=== PATIENT | male | born 1955 | race Caucasian/White ===

== ENCOUNTER 2022-04-29 14:30 | Outpatient (RCR) | payer OTHER, SELFPAY ==
[2022-04-29 14:31] VITALS: BMI 31.3
[2022-04-29 15:20] VITALS: BMI 31.3
== END 2022-07-05 10:49 | disposition home or self-care (01) ==
LOC: ANHDMC 14:30
PROVIDERS: PCP Family Medicine Adolescent Medicine; Visit Provider Nurse Practitioner Family
DX: E11.9 Type 2 diabetes mellitus without complications (principal); Z71.89 Other specified counseling; Z71.3 Dietary counseling and surveillance
CPT/HCPCS: 97802; G0108

== ENCOUNTER 2022-07-29 09:20 | Outpatient (RCR) | payer OTHER, SELFPAY | END 2022-10-14 15:24 | disposition home or self-care (01) | LOC: ANHDMC 09:20 | PROVIDERS: PCP Family Medicine Adolescent Medicine; Visit Provider Nurse Practitioner Family | DX: E11.9 Type 2 diabetes mellitus without complications (principal); Z71.89 Other specified counseling | CPT/HCPCS: G0108 ==

== ENCOUNTER 2022-12-31 13:57 | Emergency (ER) | payer MEDICARE, SELFPAY ==
--- NOTE | ~2022-12-31 | XR_ITS ---
EXAMINATION: XR knee RT min 4V DATE: 12/31/2022 14:35 INDICATION: Right knee pain after working in the yard TECHNIQUE: Anteroposterior, 2 oblique and crosstable lateral views of the right knee were obtained COMPARISON: None. FINDINGS: Alignment is normal. No fracture. Joint spaces appear normal on nonweightbearing imaging. There are tiny marginal osteophytes in all 3 compartments consistent with at least mild osteoarthritis. Tiny en thesopathic calcification at the distal quadriceps tendon. No joint effusion/layering lipohemarthrosi s. Soft tissues are unremarkable. IMPRESSION: 1. Mild tricompartmental osteoarthritis at the right knee. No right knee joint effusion or acute osse ous abnormality. Reviewed, dictated and finalized at location A. IMPRESSION: 1. Mild tricompartmental osteoarthritis at the right knee. No right knee joint effusion or acute osseous abnormality.
[2022-12-31 14:10] VITALS: BP 135/60; PULSE 62; RESP 16; TEMP 36.8; O2SAT 100
--- NOTE | 2022-12-31 14:14 | ED.LOWEXIN ---
HPI - Extremity Injury (Lower) General Chief Complaint: Extremity Injury, Lower Stated Complaint: right knee pain Time Seen by Provider: 12/31/22 14:14 Source: patient Mode of arrival: ambulatory Limitations: no limitations History of Present Illness HPI Narrative: 67-year-old male presented for complaint of right inner knee pain for 1 week. He denies specific injury but states it started hurting after working outside in his yd. He denies numbness, tingling, weakness, swelling, redness or bruising to the knee. States it is affecting his gait. Pain is worse when the knees touch at night while sleeping, or while driving. Taken an occasional Tylenol for symptoms, stating he was unsure what to take. States he had similar pain in the Spring which resolved on its own. Related Data Home Medications Medication Instructions Recorded Confirmed ascorbic acid (vitamin C) 500 mg 500 mg PO DAILY 03/17/22 09/27/22 tablet aspirin 81 mg tablet,delayed 81 mg PO DAILY 03/17/22 09/27/22 release (Adult Low Dose Aspirin) finasteride 5 mg tablet 5 mg PO DAILY 03/17/22 09/27/22 cwpmvllirkkh-dnm-mktss acid-vit 1 tablet PO DAILY 03/17/22 09/27/22 K-lycop 400 mcg-20 mcg-370 mcg tablet (Men's 50 Plus Multivitamin) omega-3s 720 mg-dha 300 mg-epa 360 cap PO 03/17/22 09/27/22 mg-fish oil 1,200 mg capsule Allergies Allergy/AdvReac Type Severity Reaction Status Date / Time No Known Allergies Allergy Verified 12/31/22 14:00 Review of Systems Review of Systems: CONSTITUTIONAL: Denies body aches, fever, chills EYES: Denies visual changes ENT: Denies rhinorrhea, congestion CARDIOVASCULAR: Denies chest pain, palpitations, or edema. RESPIRATORY: Denies cough or dyspnea. GASTROINTESTINAL: Denies abdominal pain, nausea, vomiting, or diarrhea. SKIN: Denies rash, itching, or wounds. MUSCULOSKELETAL: Reports right knee pain Denies back pain, or myalgia. NEUROLOGIC: Denies headache, numbness, tingling, or weakness. PSYCH: Denies depression or anxiety. All systems reviewed & are unremarkable except as noted in HPI and below PMFSH Past Medical History Medical History Cancer, skin, squamous cell Hyperkalemia Obstructive sleep apnea (adult) (pediatric) Pure hyperglyceridemia Type 2 diabetes mellitus without complications Surgical History Surgical History History of Achilles tendon repair Right Family History Family History Grandparent Hearing problem Hypertension Cerebrovascular accident Diabetes mellitus Bone cancer Social History Social History Smoking status: Never smoker Alcohol intake: current Alcohol use details: Wine, once a quarter. Substance use: never Substance use type: does not use Lack of Transportation: No Lack of Food: Never True Current Housing: I Have Housing Concerned About Future Housing: No Difficulty Paying Gas/Electric Bills: No Difficulty Paying for Meds: No Currently Unemployed: No Education: Master's Degree or Higher Difficulty w/ Childcare or Family Care: No Living arrangements: with family Spiritual care concerns: No Comments At time of signature, I have reviewed and agree with nursing past medical, surgical, social and family history unless otherwise noted. Please see nursing chart for further information. There is no relevant family history pertinent to the presenting complaint Exam Narrative: GENERAL: Well-appearing, well-nourished, and in no acute distress. HEAD: Normocephalic, atraumatic. CHEST: Speaks in full sentences. No respiratory distress. HEART: Regular rate and rhythm. Normal and equal peripheral pulses. EXTREMITIES: Patient is able to bear weight and ambulate with minimal pain to the right knee. Right medial k
--- NOTE | 2022-12-31 15:02 | PC.NURSE ---
call to [facility] to change rx from [facility].
== END 2022-12-31 14:54 | disposition home or self-care (01) ==
PROVIDERS: Emergency Provider Nurse Practitioner Family; PCP Family Medicine Adolescent Medicine
DX: M25.561 Pain in right knee (principal); E11.9 Type 2 diabetes mellitus without complications; E78.1 Pure hyperglyceridemia; Z85.828 Personal history of other malignant neoplasm of skin; Z79.82 Long term (current) use of aspirin
CPT/HCPCS: 73564; 99213; G0463

== ENCOUNTER 2023-02-17 02:08 | Day surgery (SDC) | payer MEDICARE, SELFPAY ==
[2023-02-16 10:33] VITALS: BMI 24.7
--- NOTE | 2023-02-16 10:38 | PC.NURSE ---
Report to the Outpatient Waiting Room, entrance under the green pavilion located off [facility], at time 1000 on date 02/17/23. Planned Procedure Time: 1200. Time changes happen often and if your time is changed the preop area will call you the afternoon before. - You and your visitor will be asked to self-screen and do not enter if you have any COVID symptoms. - A mask is optional within the hospital at this time. Patients may have clear liquids (water, carbonated beverages, clear teas, apple juice) until 3 hours prior to surgery with a maximum of 20 ounces. - No food from midnight until time of surgery Take the following medications with a SIP of water the morning of surgery: PAIN PILL, ANTIBIOTIC DO NOT STOP ANY OF YOUR OTHER PRESCRIPTION MEDICATIONS PRIOR TO SURGERY ?EXCEPT THE FOLLOWING Medications to discontinue per physician: VITAMINS/SUPPLEMENTS Date to take last dose: PT ALREADY TOOK TODAY Please no make-up, nail lithuanian, hairspray, perfume, deodorant, or body powder the day of surgery. No jewelry (including any body piercings) or valuables the day of surgery, leave them at home. Please take a shower or bath the night before, or the morning of, surgery with an antibacterial soap. Wear comfortable, loose fitting clothing. - Jewelry must be removed prior to entering the operating room. Rings and piercings that are not removed may be cut off. - The hospital will not accept responsibility for valuables. - Please leave all valuables, including medications, at home the day of surgery. If you are going home after surgery, a licensed tank driver must drive you home. - NO public transportation without another adult if you receive anesthesia. - We recommend that an adult stay with you for 24 hours following discharge. - We also recommend that you do not drive, make important decision, drink alcoholic beverages, or take any drugs that were not prescribed by your health care provider for at least 24 hours after your discharge time. Follow any additional instructions given to you from your surgeon. If you or anyone in your household have experienced Covid symptoms in the past week, please notify your surgeon or the nurse liaison at the phone number below for possible testing. Telephone instructions given to PT - JOSIE HAMMER and asked if any additional questions and then verbalized understanding. Patient advised to call surgeon office or pre surgery nurse liaison [phone] if any additional questions.
[2023-02-17] VITALS (7 sets, daily range): BP systolic 127–144; BP diastolic 55–64; PULSE 69–81; RESP 12–17; TEMP 36.8; O2SAT 100; BMI 24.7
--- NOTE | 2023-02-17 10:10 | WPDANESEPPF ---
Anes - Initial Pre Proc Eval Procedure: Operation Date: 02/17/23 12:00 Proposed Procedures p Rectal Exam Under Anesthesia, Incision and Drainage of Perirectal Abscess - Gemini Rader MD Date/Time: 02/17/23 10:10 Surgeon: Gemini Rader MD Pre Op Diagnosis: left perirectal abscess Patient Data Age: 67 Gender: M Height: 1.79 m Weight: 79.4 kg Allergies Allergy/AdvReac Type Severity Reaction Status Date / Time No Known Allergies Allergy Verified 02/17/23 10:05 Home Medications Medication Instructions Recorded Confirmed Type ascorbic acid (vitamin C) 500 mg 500 mg PO DAILY 03/17/22 02/16/23 History tablet aspirin 81 mg tablet,delayed 81 mg PO DAILY 03/17/22 02/16/23 History release (Adult Low Dose Aspirin) finasteride 5 mg tablet 5 mg PO DAILY 03/17/22 02/16/23 History ivxkgtjmdzpk-bru-wbtdh acid-vit 1 tablet PO DAILY 03/17/22 02/16/23 History K-lycop 400 mcg-20 mcg-370 mcg tablet (Men's 50 Plus Multivitamin) omega-3s 720 mg-dha 300 mg-epa 360 1 cap PO DAILY 03/17/22 02/16/23 History mg-fish oil 1,200 mg capsule atorvastatin 20 mg tablet See Rx Instructions .Route 09/15/22 02/16/23 Rx .COMPLEX #90 tabs fenofibrate 160 mg tablet 160 mg PO DAILY #90 tabs 09/15/22 02/16/23 Rx dapagliflozin propanediol 10 mg 10 mg PO QAM 90 days #90 tabs 09/27/22 02/16/23 Rx tablet (Farxiga) semaglutide 1 mg/dose (4 mg/3 mL) 1 mg (0.75 mL) subcut WEEKLY 90 09/27/22 02/16/23 Rx subcutaneous pen injector (Ozempic) days #9 mL meloxicam 15 mg tablet 15 mg PO DAILY #30 tabs 02/10/23 02/16/23 Rx sulfamethoxazole 800 1 tablet PO Q12H 10 days #20 tabs 02/10/23 02/16/23 Rx mg-trimethoprim 160 mg tablet (Bactrim DS) hydrocodone 5 mg-acetaminophen 325 1 tablet PO Q6H PRN pain #30 tabs 02/16/23 02/16/23 Rx mg tablet Patient hx anesthesia problems: none Family hx anesthesia problems: none Results Review: All pre-operative results and documents have been reviewed as part of the pre-operative evaluation. [facility] Past Medical History Medical History (Updated 02/16/23 @ 09:24 by Roberta Barillas MA) Cancer, skin, squamous cell Hyperkalemia Kidney stones Obstructive sleep apnea (adult) (pediatric) Pure hyperglyceridemia Type 2 diabetes mellitus without complications Surgical History Surgical History History of Achilles tendon repair Right Family History Family History Grandparent Hearing problem Hypertension Cerebrovascular accident Diabetes mellitus Bone cancer Social History Social History (Updated 02/16/23 @ 09:25 by Roberta Barillas MA) Smoking status: Never smoker Alcohol intake: current Alcohol use details: VERY RARE Substance use: never Substance use type: does not use Lack of Transportation: No Lack of Food: Never True Current Housing: I Have Housing Concerned About Future Housing: No Difficulty Paying Gas/Electric Bills: No Difficulty Paying for Meds: No Currently Unemployed: No Education: Master's Degree or Higher Difficulty w/ Childcare or Family Care: No Living arrangements: alone Occupation/Education: retired Spiritual care concerns: No Anes - Eval Final PreProcedure Day of Procedure 02/17/23 10:10 Patient weight: normal Heart: regular rate and rhythm Lungs: clear to auscultation Airway: Mallampati scale class II Neurological: alert and oriented Last oral intake: >/= 8 hours ASA classification: II Emergent: no Anesthetic plan: proceed Anesthesia type and monitoring: general LMA and standard monitoring Results Review: All pre-operative results and documents have been reviewed as part of the pre-operative evaluation. Informed Consent: The patient's anesthetic plan and its attendant risks and benefits were discussed with the patient/family/POA. Questions were solicited and answers provided to
--- NOTE | 2023-02-17 10:20 | ECG_ITS ---
Measurements Intervals [place] Rate: 66 P: 56 CO: 181 QRS: -6 QRSD: 84 T: 19 QT: 380 QTc: 401 Interpretive Statements SINUS RHYTHM POSSIBLE LEFT ATRIAL ENLARGEMENT INFERIOR INFARCT, AGE INDETERMINATE ABNORMAL ECG NO PREVIOUS ECG AVAILABLE FOR COMPARISON Electronically Signed On 02-17-2023 10:51:26 [employer] by Siva Salmon D.O.
--- NOTE | 2023-02-17 10:26 | WPDHPUPDATE1 ---
History and Physical Update Update Date/Time: 02/17/23 10:26 History and Physical has been reviewed, including an updated exam of the patient. There are NO changes in the patient's condition. Risks, benefits, and alternatives have been discussed and questions answered. Patient agrees to proceed with procedure.
[2023-02-17 10:33] LABS: Anion Gap 8 mmol/L (8-16); Blood Urea Nitrogen 19 mg/dL (9-20); Calcium 10.2 mg/dL (8.4-10.2); Carbon Dioxide 31 mmol/L (22-30); Chloride 95 mmol/L (98-107); Estimated CRCL calculation 62 ml/min; Estimated Glomerular Filt Rate > 60; Glucose 137 mg/dL (65-110); Sodium 134 mmol/L (137-145)
[2023-02-17] MEDS: LACTATED RINGERS 1,000 ML 30 ML IV CONT (10:33)
[2023-02-17] MEDS: ACETAMINOPHEN 500 MG TABLET 1000 MG PO (10:34)
[2023-02-17] MEDS: KETOROLAC 15 MG/ML VIAL (*BKC) IV PUSH (10:35)
[2023-02-17] MEDS: ceFAZolin 2 GM/D5W 50 ML 2 GM/50 ML BAG IVPB (11:00)
[2023-02-17] MEDS: BUPIVACAINE/EPINEPHRINE 0.5% 10 ML VIAL 20 ML INFILTRATE (11:21)
--- NOTE | 2023-02-17 11:31 | W.PM.PROC2 ---
Procedure Note - Detailed Date of Procedure 02/17/23 Pre-op Diagnosis left perirectal abscess Post-op Diagnosis Same Procedure Performed Exam under anesthesia, complex incision and drainage of left perirectal abscess measuring approximately 8 by 3 cm Surgeon Gemini Rader MD Anesthesia General and Local Indications 67-year-old male presenting to the office with a large left perirectal abscess. Patient reports symptoms over the last week and enlargement and worsening over that time despite antibiotics and local wound care. Findings 8 x 3 cm left perirectal abscess at the 2 o'clock position, no fistula Description of Procedure The patient was taken the operating room placed in the modified lithotomy position. After adequate induction general anesthesia, the patient was prepped and draped in the normal sterile fashion. A time-out was then done to verify the patient's identity, as well as the procedure being performed. I began by doing a digital exam and was able to feel a very fluctuant area in the left perirectal tissue. I then used a Badger retractor and examined the anal canal as well as the rectum. No other pathology was noted. I then localized around this area of fluctuance and using a 15 blade scalpel made an incision over the most fluctuant area. I was immediately able to gain access into the abscess cavity and a large amount of purulent drainage was noted. Sterile cultures were taken at this time. I then used a hemostat to further explore the cavity and break up further loculations. Further purulent drainage was noted. I then probed the wound and cavity for any fistula to the anal canal, none was noted. I then copiously irrigated the cavity. I then packed the cavity with half-inch iodoform packing to keep the area open and draining. Sterile dressing was then placed. The patient tolerated the procedure well and was extubated postoperatively. He will be transferred to the recovery room in stable condition. Estimated Blood Loss 5 Drains No Packing Yes Pathology Other ( Sterile culture) Condition Stable Disposition PACU [facility] Billing Surgery - Charge Forward: Surgery Billing
[2023-02-17 11:46] LABS: Glucose Point of Care 121 mg/dl (65-105)
== END 2023-02-17 13:15 | disposition home or self-care (01) ==
PROVIDERS: Anesthesiology; PCP Family Medicine Adolescent Medicine; Visit Provider Surgery
PROC: (CPT 46040; principal; 2023-02-17 12:00)
DX: K61.1 Rectal abscess (principal); E11.9 Type 2 diabetes mellitus without complications; G47.33 Obstructive sleep apnea (adult) (pediatric); E78.1 Pure hyperglyceridemia; Z79.82 Long term (current) use of aspirin; Z79.84 Long term (current) use of oral hypoglycemic drugs; Z79.85 Long-term (current) use of injectable non-insulin antidiabetic drugs
CPT/HCPCS: 45005; 36415; 80048; 82948; 87070; 87075; 87076; 87077; 87186; 87205; 93005; A9270; J0330; J0690; J1100; J1885; J2405; J2704; J3010; J7120

== ENCOUNTER 2024-05-17 15:24 | Emergency (ER) | payer MEDICARE, SELFPAY ==
--- NOTE | 2024-05-17 15:29 | ED_ITS ---
HPI - URI/Sore Throat General Chief Complaint: Upper Respiratory Infection Stated Complaint: Sinus Time Seen by Provider: 05/17/24 15:29 Source: patient Mode of arrival: ambulatory Limitations: no limitations History of Present Illness HPI Narrative: Josue is a 68-year-old male patient presenting to the clinic today with complaints sinus congestion and cough x3 days. He reports cough is nonproductive. No fever, chills, body aches. Denies any chest pain or shortness of breath. MD elicited complaint: cough and nasal congestion Related Data Home Medications ?Medication ?Instructions ?Recorded ?Confirmed ?Last Taken ?Type ascorbic acid (vitamin C) 500 mg 500 mg PO DAILY 03/17/22 02/27/24 Unknown History tablet aspirin 81 mg tablet,delayed 81 mg PO DAILY 03/17/22 02/27/24 Unknown History release (Adult Low Dose Aspirin) finasteride 5 mg tablet 5 mg PO DAILY 03/17/22 02/27/24 Unknown History wnwqlfcvkogl-szf-umega acid-vit 1 tablet PO DAILY 03/17/22 02/27/24 Unknown History K-lycop 400 mcg-20 mcg-370 mcg tablet (Men's 50 Plus Multivitamin) omega-3s 720 mg-dha 300 mg-epa 360 1 cap PO DAILY 03/17/22 02/27/24 Unknown History mg-fish oil 1,200 mg capsule Allergies Allergy/AdvReac Type Severity Reaction Status Date / Time No Known Allergies Allergy Verified 05/17/24 15:27 Review of Systems Review of Systems: Pertinent positives per HPI. Patient denies any fever, chills, rash, headache, visual changes, dizziness, shortness of breath, chest pain, palpitations, nausea, vomiting, diarrhea, constipation, abdominal pain, or any urinary issues. [facility] Past Medical History Medical History Kidney stones Hyperkalemia Cancer, skin, squamous cell Pure hyperglyceridemia Obstructive sleep apnea (adult) (pediatric) Type 2 diabetes mellitus without complications Surgical History Surgical History History of Achilles tendon repair Right Family History Family History Grandparent Hearing problem Hypertension Cerebrovascular accident Diabetes mellitus Bone cancer Social History Social History Smoking status: Never smoker Alcohol intake: current Alcohol use details: VERY RARE Substance use: never Substance use type: does not use Lack of Transportation: No Lack of Food: Never True Current Housing: I Have Housing Concerned About Future Housing: No Difficulty Paying Gas/Electric Bills: No Difficulty Paying for Meds: No Currently Unemployed: No Education: Master's Degree or Higher Difficulty w/ Childcare or Family Care: No Living arrangements: alone Occupation/Education: retired Spiritual care concerns: No Comments At the time of my signature, I reviewed and agree with the nursing past medical, surgical, social, and family history. There is no relevant family history pertinent to the patient complaint. Exam Narrative: General: Well-developed, well nourished, in no apparent distress Head: Normocephalic, atraumatic Eyes: Pupils equally round and reactive to light bilaterally, EOM intact, sclera and conjunctive clear, no discharge, lids normal Ears: TMs intact and clear, ear canals clear, no drainage, grossly hearing normal. Nose: Nares patent, clear nasal discharge, no inflammation, no sinus tenderness. Mouth: Oral pharynx without lesions or masses, good dentition, MMM. Postnasal drip Neck: Supple, trachea midline, no enlargement of anterior or posterior cervical nodes, no thyroid masses or goiter palpable. Cardio: Regular rate and rhythm, s1 and s2 normal, no murmur appreciated. Resp: Clear to auscultation bilaterally, no rhonchi, rales, wheezing or rubs Course Course Emergency Course: Portions of this record may have been created with voice recognition software. Level of Care: Express Care Visit Vital Signs Vital signs: Vital Signs Temperature 36.2 C L 05/17/24 15:38 Pulse Rate 79 05/17/24 15:38 Respiratory Rate 16 05/17/24 15:38 Blood Pressure 132/63 05/17/24 15:38 Pulse Oximetry 100 05/17/24 15:38 Oxygen Delivery Room Air 05/17/24 15:38 Temperature 36.2 C L 05/17/24 15:38 Pulse Rate 79 05/17/24 15:38 Respiratory Rate 16 05/17/24 15:38 Blood Pressure 132/63 05/17/24 15:38 Pulse Oximetry 100 05/17/24 15:38 Oxygen Delivery Room Air 05/17/24 15:38 Vital signs reviewed MDM - URI/Sore Throat MDM Narrative Medical decision making narrative: At the time of visit patient is resting comfortably on the exam table. Patient appears to be nontoxic. Labs: COVID testing is positive in the clinic today. Flu testing is negative. Plan: Patient has COVID-19. Supportive measures were discussed with the patient and they voiced understanding discharge instructions and agrees to treatment plan. Return precautions reviewed Differential Diagnosis Differential diagnosis: Likely upper respiratory infection, otitis media, sinusitis, viral infection, bronchitis, influenza and pharyngitis Lab Data Labs: Lab Results 05/17/24 Range/Units 15:45 POC Influenza A Ag Negative (Negative) POC Influenza B Ag Negative (Negative) POC SARS CoV-2 Ag Positive (Negative) Discharge Plan Discharge Clinical Impression: COVID-19 Patient Disposition: Home, Self-Care Condition: Stable Instructions: Antibiotic Form, How to Recover from COVID-19 at Home (ED) Additional Instructions: COVID testing is positive in the clinic today. Influenza testing was negative. May take DayQuil/NyQuil for cold/flu symptoms May take Mucinex during the daytime to help alleviate cough. Increase fluids and stay well hydrated Tylenol/motrin for pain/fever Flonase and OTC antihistamines as directed Vicks vapor rub to open sinuses Sinus rinses for congestion Cepacol spray, cough drops, throat lozenges, warm tea with honey/lemon, gargle salt water to soothe throat BRAT diet for diarrhea Clear liquids x 24 hours then advance as tolerated for nausea/vomiting Go to the ED if you develop a worsening in your condition- high fever not controlled by Tylenol or Motrin, dehydration, weakness, lethargy, shortness of breath, or chest pain. Follow up with your PCP in 3-5 days if symptoms persist. Patient Language: Polish Prescriptions: No Action aspirin [Adult Low Dose Aspirin] 81 mg tablet,delayed release (DR/EC) 81 mg PO DAILY finasteride 5 mg tablet 5 mg PO DAILY Men's 50 Plus Multivitamin 400-20-370 mcg tablet 1 tablet PO DAILY ascorbic acid (vitamin C) 500 mg tablet 500 mg PO DAILY pixfb-1i-ygg-epa-fish oil 720-1,200 mg capsule 1 cap PO DAILY metformin 500 mg tablet extended release 24 hr 1,000 mg PO BID 90 Days Qty: 360 1RF atorvastatin 20 mg tablet See Rx Instructions .ROUTE .COMPLEX Qty: 90 1RF Dose Instruction: TAKE 1 TABLET BY MOUTH DAILY Rx Instructions: TAKE 1 TABLET BY MOUTH DAILY Farxiga 10 mg tablet See Rx Instructions .ROUTE .COMPLEX Qty: 90 3RF Dose Instruction: TAKE 1 TABLET BY MOUTH EVERY MORNING Rx Instructions: TAKE 1 TABLET BY MOUTH EVERY MORNING Ozempic 2 mg/dose (8 mg/3 mL) pen injector 2 mg subcut WEEKLY 90 Days Qty: 9 3RF Follow-up/Referrals: Pipo Alas MD [Primary Care Provider] - Time of Disposition: 15:45 Quality NIHSS Nursing Documentation ED NIHSS nursing documentation: reviewed/agree
[2024-05-17 15:38] VITALS: BP 132/63; PULSE 79; RESP 16; TEMP 36.2; O2SAT 100
[2024-05-17 15:52] LABS: EDCOVIDSCREEN Positive (Negative); EDINFLUASCREEN Negative (Negative); EDINFLUBSCREEN Negative (Negative)
== END 2024-05-17 15:55 | disposition home or self-care (01) ==
PROVIDERS: Emergency Provider Nurse Practitioner Family; PCP Family Medicine Adolescent Medicine
DX: U07.1 COVID-19 (principal); E11.9 Type 2 diabetes mellitus without complications; Z85.828 Personal history of other malignant neoplasm of skin
CPT/HCPCS: 87426; 87804; 99212; G0463